=== PATIENT | female | born 1990 | race Caucasian/White ===

== ENCOUNTER 2020-10-14 16:35 | Outpatient (CLI) | payer BC ==
--- NOTE | 2020-10-14 16:55 | RAD ---
Right ankle 3 views HISTORY: Fall. Injury. FINDINGS: Ankle mortise and talar dome are intact. No acute fracture, dislocation, or aggressive osseous erosions. IMPRESSION : No abnormalities are demonstrated.
--- NOTE | 2020-10-14 16:56 | RAD ---
Right lower leg 2 views HISTORY: Injury. FINDINGS: Tibia and fibula are intact. No acute fracture or dislocation. No radiopaque foreign bodies. IMPRESSION : No abnormalities are demonstrated.
== END 2020-10-14 16:36 | disposition home or self-care (01) ==
LOC: SCSRAD 16:35
PROVIDERS: ATTEND Family Medicine
DX: M79.671 Pain in right foot (principal)